=== PATIENT | male | born 1975 | race Caucasian/White ===

== ENCOUNTER 2018-06-18 19:50 | Emergency (ER) | payer BC ==
[2018-06-18] MEDS ORDERED: Clindamycin HCl 150 MG Cap PO ONE (20:39)
[2018-06-18] MEDS ORDERED: Acetaminophen/oxyCODONE 325-5 MG Tab PO ONE (20:39)
--- NOTE | 2018-06-18 20:45 | EDM.PDOC ---
ED HPI GENERAL MEDICAL PROBLEM - General Chief Complaint: ENT Problem Stated Complaint: ABCESS TOOTH Time Seen by Provider: 06/18/18 20:30 Source of Information: Reports: Patient History Limitations: Reports: No Limitations - History of Present Illness INITIAL COMMENTS - FREE TEXT/NARRATIVE: 42-year-old male presents to the ED with severe left lower dental pain. It radiates up along the entire left side of his face and slightly down to his left anterior neck. Pain started 2 days ago and is much worse today. He's been living on Tylenol and Motrin with minimal effect. Slipping on cool water continuously is only thing that gives him some temporary pain relief. No recent dental interventions. Onset: Gradual Onset Date: 06/16/18 (Gradually increased pain lower more over the last) Duration: Day(s):, Constant, Getting Worse Location: Reports: Face (Dental pain left lower molar), Radiates to (Into his left temporal scalp left ear and down along his left neck.) Quality: Reports: Ache, Throbbing, Other Severity: Severe (Pounding 8 out of 10) Improves with: Reports: Medication (Has been taking combination of Tylenol and Motrin with minimal relief.), Other (Only relief he gets his "water continuously.) Worsens with: Reports: Eating Context: Denies: Activity, Exercise, Lifting, Sick Contact, Trauma, Other Associated Symptoms: Reports: Loss of Appetite. Denies: No Other Symptoms, Confusion, Chest Pain, Cough, cough w sputum, Diaphoresis, Fever/Chills, Headaches Treatments [employer]: Reports: Acetaminophen, NSAIDS (Motrin) Left Lower Tooth/Teeth Pain Score (Numeric/FACES): 9 - Related Data Allergies Allergy/AdvReac Type Severity Reaction Status Date / Time No Known Allergies Allergy Verified 06/18/18 20:13 Home Meds: Home Meds Clindamycin HCl 300 mg PO TID #24 capsule 06/18/18 [Rx] oxyCODONE HCl/Acetaminophen [Percocet 5-325 mg Tablet] 1 - 2 each PO Q4H PRN # 20 tablet 06/18/18 [Rx] Past Medical History - Past Health History Medical/Surgical History: Denies Medical/Surgical History Social & Family History - Tobacco Use Smoking Status *Q: Never Smoker - Recreational Drug Use Recreational Drug Use: No - Living Situation & Occupation Living situation: Reports: Occupation: Employed ED ROS ENT - Review of Systems Review Of Systems: See Below Constitutional: Reports: Fatigue (Mild fatigued from work and not sleeping). Denies: Fever, Chills, Malaise, Weakness HEENT: Reports: Dental Pain Respiratory: Reports: No Symptoms (Dental pain left lower molar tooth.) Cardiovascular: Reports: No Symptoms Endocrine: Reports: No Symptoms GI/Abdominal: Reports: No Symptoms ED EXAM, ENT - Physical Exam Exam: See Below Exam Limited By: No Limitations General Appearance: Alert, WD/WN, Moderate Distress (He continues to sip from a water bottle as this gives him temporary relief of the throbbing shooting pain.) Eye Exam: Bilateral Eye: Normal Inspection Ears: Normal TMs Mouth/Throat: Dental Abcess (Left lower second molar), Dental Tenderness (Left lower second molar. The tooth itself is cracked) Head: Atraumatic, Normocephalic Neck: Normal Inspection, Supple, Non-Tender, Full Range of Motion. No: Lymphadenopathy (L), Lymphadenopathy (R) Course - Vital Signs Last Recorded V/S: Last Vital Signs Temp 36.5 C 06/18/18 20:14 Pulse 75 06/18/18 20:14 Resp 18 06/18/18 20:14 BP 157/94 H 06/18/18 20:14 Pulse Ox 100 06/18/18 20:14 - Orders/Labs/Meds Meds: Medications Discontinued Medications Generic Name Dose Route Start Last Admin Trade Name Freq PRN Reason Stop Dose Admin Clindamycin HCl 300 mg 06/18/18 20:39 Cleocin PO 06/18/18 20:40 ONETIME ONE Oxycodone/Acetaminophen 2 tab 06/18/18 20:39 Percocet 325-5 Mg PO 06/18/18 20:40 ONETIME ONE - Radiology Interpretation Free Text/Narrative:: 42-year-old male presents to the ED with gradually worsening dental pain from the left lower molar tooth over the last 2 days. No pain is constant throbbing pulsating. Unrelentless. Unable to sleep. Off shift work today. Plans to travel home tomorrow. is to arrange dental appointment for later this week. Plan clindamycin 300 mg 3 times daily for the next 8 days. Percocet tabs 5/325 mg one or 2 every 4-6 hours for pain relief. Patient advised cannot operate a motor vehicle taking the stronger pain medication. He states he lives 8 hours away. - Re-Assessments/Exams Free Text/Narrative Re-Assessment/Exam: 06/18/18 20:51 patient will receive medications through the [facility] machine for Percocet and clindamycin. Departure - Departure Time of Disposition: 20:47 Disposition: Home, Self-Care 01 Condition: Fair Clinical Impression: Dental infection - Discharge Information *PRESCRIPTION DRUG MONITORING PROGRAM REVIEWED*: No *COPY OF PRESCRIPTION DRUG MONITORING REPORT IN PATIENT TRUE: No Prescriptions: Clindamycin HCl 300 mg PO TID #24 capsule oxyCODONE HCl/Acetaminophen [Percocet 5-325 mg Tablet] 1 - 2 each PO Q4H PRN # 20 tablet PRN Reason: pain relief. Referrals: PCP,None [Primary Care Provider] - Forms: ED Department Discharge Additional Instructions: Evaluation the emergency room tonight in regards to increasing dental pain left lower molar tooth over the last 2-3 days. Constant severe throbbing pulsating pain. Patient the tooth revealed to be fractured with a crack evident in the enamel on the surface or chronic the tooth. Infection appears to developed in the root of the tooth. Treatment is to be Percocet 5/3/25 milligrams tabs one or 2 every 4-6 hours as needed for pain relief. Continue ibuprofen 600 mg every 6 hours to reduce pain and inflammation. Start antibiotic clindamycin 300 mg 3 times daily for the next 8 days to clear up suspect dental infection. Follow-up with dentist when able. Will have to be extracted or root canal done on it.
== END 2018-06-18 21:10 | disposition home or self-care (01) ==
LOC: JD.ED 19:50
DX: K04.7 Periapical abscess without sinus (principal)
CPT/HCPCS: 99283; A9270